=== PATIENT | female | born 1970 | race Caucasian/White ===

== ENCOUNTER 2019-12-15 08:27 | Outpatient (REF) | payer OTHER, SELFPAY ==
[2019-12-15 21:51] LABS: HGB 13.7 g/dL (12.0-15.5); Mean Corp. HGB Concentration 33.4 g/dL (32.0-36.0); Mean Corpuscular Hemoglobin 30.5 pg (27.0-33.0); Mean Corpuscular Volume 91.3 fL (80-95); Mean Platelet Volume 10.9 fL (8.0-11.0); Platelet Count 367 x1000/uL (130-400); RBC 4.49 m/cumm (4.00-5.20); RBC Distribution Width 12.7 % (11.7-14.6); White Blood Cell Count 5.69 k/cumm (4.4-10.8)
[2019-12-15 22:13] LABS: Anion Gap 10.5 mmol/L (3-11); BUN 7 mg/dL (7-18); CO2 27.5 mmol/L (21.0-32.0); CREATININE 0.71 mg/dL (0.55-1.02); Calcium 9.1 mg/dL (8.5-10.1); Calculated LDL 85 mg/dL (<100); Chloride 104 mmol/L (98-107); Cholesterol 193 mg/dL (<200); Glucose 101 mg/dL (74-106); HDL Cholesterol 35 mg/dL (40-60); Potassium 4.3 mmol/L (3.5-5.1); Sodium 142 mmol/L (136-145); TSH 1.39 uIU/mL (0.36-3.74); Triglyceride 368 mg/dL (<150)
[2019-12-16 05:17] LABS: Vitamin D 25 Total 14.3 ng/ml (30-100)
== END 2019-12-15 08:47 ==
LOC: NCHCN 08:27
PROVIDERS: PCP Specialist/Technologist Athletic Trainer; Visit Provider Nurse Practitioner Family
DX: Z00.00 Encounter for general adult medical examination without abnormal findings (principal); N95.1 Menopausal and female climacteric states
CPT/HCPCS: 80048; 80061; 82306; 85027; 84443

== ENCOUNTER 2020-01-11 15:20 | Outpatient (REF) | payer OTHER, SELFPAY ==
[2020-01-13 13:16] LABS: HSV 1 DNA Result Positive (Negative); HSV 2 DNA Result Negative (Negative); Varicella Zoster DNA Result Negative (Negative)
== END 2020-01-11 15:40 ==
LOC: NCHCN 15:20
PROVIDERS: PCP Specialist/Technologist Athletic Trainer; Visit Provider Physician Assistant Medical
DX: N76.6 Ulceration of vulva (principal); N76.0 Acute vaginitis
CPT/HCPCS: 87529; 87798; 87480; 87510; 87660

== ENCOUNTER 2021-12-04 15:38 | Outpatient (REF) | payer OTHER, SELFPAY | END 2021-12-04 15:39 | disposition home or self-care (01) | LOC: NCHCN 15:38 | PROVIDERS: PCP Specialist/Technologist Athletic Trainer; Visit Provider Nurse Practitioner Family | DX: Z00.00 Encounter for general adult medical examination without abnormal findings (principal); N89.8 Other specified noninflammatory disorders of vagina; N95.1 Menopausal and female climacteric states | CPT/HCPCS: 87480; 87510; 87660 ==

== ENCOUNTER 2022-01-01 18:33 | Outpatient (REF) | payer OTHER, SELFPAY ==
[2022-01-01 13:44] LABS: HCT 38.6 % (36.0-46.0); HGB 12.8 g/dL (11.2-15.7); MCH 30.3 pg (27.0-33.0); MCHC 33.2 % (32.0-36.0); MCV 91.5 fL (80-95); MPV 9.9 fL (8.0-11.0); Platelet Count 393 10^3/uL (130-400); RBC 4.22 10^6/uL (3.93-5.22); RDW 12.4 % (11.7-14.6); RDW-SD 41.6 fL
[2022-01-01 14:06] LABS: TSH (W/Ref FT4) 1.84 uIU/mL (0.36-3.74)
[2022-01-03 05:45] LABS: Vitamin D 25 Total 15.9 ng/mL (30-100)
== END 2022-01-01 18:34 | disposition home or self-care (01) ==
LOC: NCHCN 18:33
PROVIDERS: PCP Specialist/Technologist Athletic Trainer; Visit Provider Nurse Practitioner Family
DX: Z00.00 Encounter for general adult medical examination without abnormal findings (principal); N92.0 Excessive and frequent menstruation with regular cycle; E55.9 Vitamin D deficiency, unspecified
CPT/HCPCS: 82306; 85027; 84443

== ENCOUNTER 2022-02-05 02:09 | Outpatient (CLI) | payer OTHER, SELFPAY ==
--- NOTE | 2022-02-05 15:07 | DI.MAMMO_ITS ---
Exam(s) MAMMO SCREENING EXAM: MAMMO SCREENING CLINICAL HISTORY: SCREENING, [facility], Z00.00 TECHNIQUE: Bilateral full field digital CC and MLO mammographic images were obtained with 3D tomosyn thesis and utilizing computer aided detection (CAD). COMPARISON: Available for comparison. FINDINGS: Masses/Architectural Distortion: None seen. Microcalcifications: No suspicious pleomorphic-type are seen. Skin Thickening/Nipple Retraction: None. IMPRESSION: 1. No significant interval change with no specific features of malignancy noted. 2. Unless there is more urgent need, screening mammography is recommended, as per [place] [employer] guidelines. BI-RADS Category 1 - Negative Breast Density - Category B - Scattered areas of fibroglandular density Breast density category C or D implies that the patient has dense breast tissue. Dense breast tissue is very common and is not abnormal but dense breast tissue can make it harder to find cancer on a ma mmogram. Also, dense breast tissue may increase their breast cancer risk. This information about the result of the mammogram report was provided to the patient to raise their awareness. Use this report when you speak with the patient about their risks for breast cancer, which includes their family hist ory. At that time, you may recommend for more screening tests (Ultrasound or MRI) as they might be us eful based on their risk. A negative radiographic report should not delay biopsy if a dominant or clinically suspicious mass is present. Up to ten percent of cancers are not identified on mammography. A negative report may reinforce clinical impression. Adenosis and dense breasts may obscure an underlying neoplasm. False positive reports average 6 to 10%. Patient will receive a letter notifying them of these results.
== END 2022-02-05 02:29 ==
PROVIDERS: PCP Specialist/Technologist Athletic Trainer; Visit Provider Nurse Practitioner Family
DX: Z00.00 Encounter for general adult medical examination without abnormal findings (principal); Z12.31 Encounter for screening mammogram for malignant neoplasm of breast
CPT/HCPCS: 77063; 77067

== ENCOUNTER 2023-06-10 16:42 | Outpatient (REF) | payer OTHER, SELFPAY ==
--- NOTE | 2023-06-10 16:30 | PAPFT_PTH ---
PATIENT: Fadumo Escobar LOC: [facility]#:[id number] AGE/SX: 52/F ROOM: RE06/10/[address]: Fadumo Yusuf : 1970 BED: DIS: 06/10/2023 SPEC #: [id number] RECD: 06/10/23 18:22 STATUS: FRANCESCO REAntonio #: [id number] MILLER: 06/10/23 16:[address]: Fadumo Yusuf DEPT: [facility] Cytology RECD BY: Monserrat Finn ENTERED: 06/10/23 18:22 SP TYPE: PAPFT ALEXANDER DR: Bahman Ayala Tissues: 1 - CX/ENDOCX FOR PAP SMEARS Procedures: PAP THIN PREP/[facility] Screening HPV DNA PROBE Comments: [id number]
== END 2023-06-10 16:43 | disposition home or self-care (01) ==
LOC: NCHCN 16:42
PROVIDERS: PCP Specialist/Technologist Athletic Trainer; Visit Provider Nurse Practitioner Family
DX: Z12.72 Encounter for screening for malignant neoplasm of vagina (principal)
CPT/HCPCS: 88142; 87624

== ENCOUNTER 2023-06-17 09:34 | Outpatient (REF) | payer OTHER, SELFPAY ==
[2023-06-17 16:28] LABS: Anion Gap 11.5 mmol/L (3-11); BUN 8 mg/dL (7-18); CO2 24.5 mmol/L (21.0-32.0); CREATININE 0.7 mg/dL (0.55-1.02); Calcium 9.1 mg/dL (8.5-10.1); Calculated LDL 66 mg/dL (<100); Chloride 106 mmol/L (98-107); Cholesterol 178 mg/dL (<200); Glucose 110 mg/dL (74-106); HDL Cholesterol 39 mg/dL (40-60); Potassium 4.1 mmol/L (3.5-5.1); Sodium 142 mmol/L (136-145); Triglyceride 367 mg/dL (<150)
== END 2023-06-17 09:35 | disposition home or self-care (01) ==
LOC: NCHCN 09:34
PROVIDERS: PCP Specialist/Technologist Athletic Trainer; Visit Provider Nurse Practitioner Family
DX: Z00.00 Encounter for general adult medical examination without abnormal findings (principal); Z13.220 Encounter for screening for lipoid disorders; Z13.228 Encounter for screening for other metabolic disorders
CPT/HCPCS: 80048; 80061

== ENCOUNTER 2024-07-27 01:18 | Outpatient (CLI) | payer OTHER, SELFPAY ==
--- NOTE | 2024-07-27 15:18 | DI.MAMMO_ITS ---
Exam(s) MAMMO SCREENING EXAM: MAMMO SCREENING CLINICAL HISTORY: SCREENING, Z12.31 TECHNIQUE: Bilateral full field digital CC and MLO mammographic images were obtained with 3D tomosyn thesis and utilizing computer aided detection (CAD). COMPARISON: Available for comparison. FINDINGS: Masses/Architectural Distortion: There is an ovoid nodule in the upper left breast on the MLO view me asuring 9 mm. It is 7 cm from the nipple. No areas of architectural distortion are seen. Microcalcifications: No suspicious pleomorphic-type are seen. Skin Thickening/Nipple Retraction: None. IMPRESSION: 1. 9 mm nodule in the upper left breast on the MLO view. 2. This area should be further evaluated with a spot compression view. Limited left breast ultrasoun d may be indicated at that time. BI-RADS Category 0 - Incomplete: Need additional imaging evaluation Breast Density - Category B - Scattered areas of fibroglandular density Breast density category C or D implies that the patient has dense breast tissue. Dense breast tissue is very common and is not abnormal but dense breast tissue can make it harder to find cancer on a ma mmogram. Also, dense breast tissue may increase their breast cancer risk. This information about the result of the mammogram report was provided to the patient to raise their awareness. Use this report when you speak with the patient about their risks for breast cancer, which includes their family hist ory. At that time, you may recommend for more screening tests (Ultrasound or MRI) as they might be us eful based on their risk. A negative radiographic report should not delay biopsy if a dominant or clinically suspicious mass is present. Up to ten percent of cancers are not identified on mammography. A negative report may reinforce clinical impression. Adenosis and dense breasts may obscure an underlying neoplasm. False positive reports average 6 to 10%. Patient will receive a letter notifying them of these results.
== END 2024-07-27 01:38 ==
LOC: DI 01:19
PROVIDERS: PCP Family Medicine; Visit Provider Family Medicine
DX: Z12.31 Encounter for screening mammogram for malignant neoplasm of breast (principal)
CPT/HCPCS: 77063; 77067

== ENCOUNTER 2024-08-04 01:01 | Outpatient (CLI) | payer OTHER, SELFPAY ==
--- NOTE | 2024-08-04 | DI.US_ITS ---
Exam(s) MG MAMMO SCREEN CALL BACK UNI US BREAST LT LIMITED EXAM: MG MAMMO SCREEN CALL BACK UNI CLINICAL HISTORY: 9 mm ovoid nodule in upper lt breast 7 cm from nipple. TECHNIQUE: mediolateral oblique spot compression digital Mammography views of the leftbreast with To mosynthesis and left breast ultrasound. COMPARISON: MG SCREENING TIKI MAMMO W/CAD DIGI from 02/20/2012 MG Screening Bilat Mammo from 12/09/2017 MG MG MAMMO SCREENING from 02/05/2022 MG MG MAMMO SCREENING from 07/27/2024 FINDINGS: Mammography/Tomosynthesis: Masses: None seen. Questioned area of nodularity in the superior left breast dissipates on the spot compression view. Architectural Distortion: None seen. Microcalcifictions: No suspicious pleomorphic-type are seen. Skin Thickening/Nipple Retraction: None. Left breast US: Echotexture: Normal appearance of the glandular tissue. Shadowing: No suspicious foci. Cyst: None. Solid lesions: None seen. Ductal dilation: None. IMPRESSION: 1. No evidence of malignancy is noted. 2. Unless there is more urgent need, follow-up screening mammography is recommended, as per [employer] [employer] guidelines. 3. The findings were discussed with the patient on the date of the examination. BI-RADS Category 1 - Negative Breast Density - Category B - Scattered areas of fibroglandular density A negative radiographic report should not delay biopsy if a dominant or clinically suspicious mass is present. Up to ten percent of cancers are not identified on mammography. A negative report may reinforce clinical impression. Adenosis and dense breasts may obscure an underlying neoplasm. False positive reports average 6 to 10%. Patient will receive a letter notifying them of these results.
== END 2024-08-04 01:21 ==
LOC: DI 01:02
PROVIDERS: PCP Family Medicine; Visit Provider Family Medicine
DX: Z12.31 Encounter for screening mammogram for malignant neoplasm of breast (principal); R92.8 Other abnormal and inconclusive findings on diagnostic imaging of breast
CPT/HCPCS: 76642; 77063; 77067